=== PATIENT | female | born 2000 | race Caucasian/White ===

== ENCOUNTER 2024-09-30 09:39 | Observation (INO) | payer OTHER, SELFPAY ==
--- NOTE | 2024-09-30 10:23 | P.TNLD_ITS ---
Visit Information Visit Information Date of evaluation: 09/30/24 On-call OB Provider: Thelma Bradley Comments/Additional reasons for admission: right flank pain, last week, then resolved, then woke her last night. coming and going occasionally. visiting for 2wks from [place]. Vital Signs Vital Signs: BP 125/72, HR 76, T 36.6 PFSH Social History Smoking Status: Never smoker Evaluation Evaluation Baseline heart rate: 130 Variability: Moderate (11-25) monitor accelerations: Present (10x10) Monitor Decelerations: Absent Contraction Frequency (minutes): 0 Category of Tracing: Appropriate for gestational age Diagnosis, Plan/Disposition Final Diagnosis (1) Right flank pain: Status: Acute (2) 24 weeks gestation of : Status: Acute Plan/Disposition Plan: 24yo at 24wks TORSTEN presented to the center today for right-sided flank pain. She denied having the pain well in the center, but it had woken her from sleep last night and the night before. She was afebrile, with a negative urinalysis today. Appropriate monitoring for gestational age. -patient encouraged to stay well hydrated, and follow up in the center if her pain worsens while she is here OB Disposition: home
[2024-09-30 10:46] VITALS: BP 135/73
[2024-09-30 11:00] LABS: Appearance Urine UA SL CLOUDY; Bilirubin Urine UA NEGATIVE (NEGATIVE); Color Urine UA YELLOW; Glucose Urine UA NEGATIVE (Negative); Ketones Urine UA NEGATIVE (NEGATIVE); Leukocyte Esterase Urine UA NEGATIVE (NEGATIVE); Nitrite Urine UA NEGATIVE (Negative); Occult Blood Urine UA NEGATIVE (Negative); Protein Urine UA NEGATIVE (Negative); Specific Gravity Urine UA 1.015 (1.000-1.035)
[2024-09-30 11:02] LABS: pH Urine UA 7.5 (4.5-8.0)
[2024-09-30 11:09] LABS: Bacteria Urine Moderate (10-30); Culture Indicated Urine Cult Not Indicated; RBC Urine None Seen (0-5/HPF); Squamous Epithelial Cell Urine 10-30 /HPF (0-5/HPF); Urine Volume 10mL (spun); WBC Urine 1-5/HPF (0-5/HPF)
== END 2024-09-30 11:40 | disposition home or self-care (01) ==
LOC: LABOR 09:46
PROVIDERS: Admitting Provider Obstetrics & Gynecology; Referring Provider Obstetrics & Gynecology; Visit Provider Obstetrics & Gynecology
DX: O26.892 Other specified pregnancy related conditions, second trimester (principal); R10.9 Unspecified abdominal pain; Z3A.24 24 weeks gestation of pregnancy
CPT/HCPCS: 59025; 81001; G0378; G0379